=== PATIENT | male | born 1995 | race Caucasian/White ===

== ENCOUNTER 2016-11-25 01:23 | Inpatient (IN) | payer OTHER ==
[~2016-11-25] VITALS: Ht 188 cm; Wt 90.7 kg
[2016-11-25] VITALS (7 sets, daily range): BP systolic 101–113; BP diastolic 39–51; PULSE 85–132; TEMP 99.3–100.2
[2016-11-25 02:07] LABS: BASO % 0.2 % (0.0-2.0); EOS # 0.1 (0.0-0.7); EOS % 0.4 % (0-4.0); GRAN # 12.3 (1.4-6.5); GRAN % 85.2 % (42.2-75.2); HEMATOCRIT 45.1 % (36.0-47.0); HEMOGLOBIN 15.2 g/dl (12.5-16.1); LYMPH # 0.7 (1.2-3.4); LYMPH % 5.1 % (20.0-51.0); MEAN CELL VOLUME 87 fl (80.0-95.0); MEAN CORPUSCULAR HEMOGLOBIN 29 pg (26.0-32.0); MEAN CORPUSCULAR HGB CONC 34 g/dl (33.0-37.0); MEAN PLATELET VOLUME 9.2 fl (7.4-10.4); MONO # 1.3 (0.1-0.6); MONO % 8.8 % (1.7-9.3); PLATELET COUNT 226 K/mm3 (130-400); RED BLOOD COUNT 5.19 M/mm3 (4.20-5.60); WHITE BLOOD COUNT 14.5 K/mm3 (4.8-10.8)
[2016-11-25 02:26] LABS: ADJUSTED CALCIUM 9.3 mg/dL (8.4-10.2); ALBUMIN 4.9 gm/dL (3.5-5.0); BILIRUBIN,TOTAL 1.6 mg/dL (0.0-1.0); CREATININE, serum 1.2 mg/dL (0.66-1.25); POTASSIUM 4.5 mmol/L (3.4-5.0); TOTAL PROTEIN 8.2 gm/dL (6.4-8.2)
[2016-11-25] MEDS ORDERED: ZOFRAN ODT4 MG PO (02:54)
[2016-11-25] MEDS ORDERED: ZOFRAN 4MG T4 MG/TAB PO (16:35)
[2016-11-25] MEDS ORDERED: IMODIUM 2MG CAPS2 MG PO (16:38)
== END 2016-11-25 18:27 | disposition home or self-care (01) | DRG 392 ==
LOC: COL.ER 01:23 → MEDICAL 07:13
PROVIDERS: Physician Assistant
DX: A08.4 Viral intestinal infection, unspecified (principal); I95.1 Orthostatic hypotension
CPT/HCPCS: J2405; J2550; J2765; J7030; J7120